=== PATIENT | male | born 1980 | race Two or more races ===

== ENCOUNTER 2016-10-02 07:29 | Emergency (ER) | payer OTHER ==
[2016-10-02 09:14] VITALS: BP 126/65
== END 2016-10-02 09:15 | disposition home or self-care (01) ==
LOC: ED 07:29
DX: S93.602A Unspecified sprain of left foot, initial encounter (principal); J45.909 Unspecified asthma, uncomplicated; X50.1XXA Overexertion from prolonged static or awkward postures, initial encounter; Y93.89 Activity, other specified; Y99.8 Other external cause status; Y92.89 Other specified places as the place of occurrence of the external cause